=== PATIENT | male | born 1965 | race Caucasian/White ===

== ENCOUNTER 2021-03-12 05:47 | Inpatient (IN) | payer BC ==
[~2021-03-12] VITALS: Ht 177.8 cm; Wt 149.7 kg
[2021-03-12 06:33] LABS: HEMOGLOBIN 14.8 gm/dl (14.0-17.5); RED BLOOD COUNT 4.95 M/UL (4.20-5.50); WHITE BLOOD COUNT 6.4 K/UL (4.5-11.0)
[2021-03-12 06:46] LABS: BUN/CREATININE RATIO 24 (0-10)
[2021-03-12 09:37] LABS: BORDETELLA PARAPERTUSSIS Not Detected (Not Detectd); BORDETELLA PERTUSSIS Not Detected (Not Detectd); CHLAMYDIA PNEUMONIAE Not Detected (Not Detectd); CORONAVIRUS HKU1 Not Detected (Not Detectd); CORONAVIRUS NL63 Not Detected (Not Detectd); CORONAVIRUS OC43 Not Detected (Not Detectd); CORONOAVIRUS 229E Not Detected (Not Detectd); HUMAN METAPNEUMOVIRUS Not Detected (Not Detectd); HUMAN RHINOVIRUS/ENTEROVIRUS Not Detected (Not Detectd); INFLUENZA A Not Detected (Not Detectd); INFLUENZA B Not Detected (Not Detectd); MYCOPLASMA PNEUMONIAE Not Detected (Not Detectd); PARAINFLUENZA VIRUS 1 Not Detected (Not Detectd); PARAINFLUENZA VIRUS 2 Not Detected (Not Detectd); PARAINFLUENZA VIRUS 3 Not Detected (Not Detectd); PARAINFLUENZA VIRUS 4 Not Detected (Not Detectd); RESPIRATORY SYNCYTIAL VIRUS Not Detected (Not Detectd)
[2021-03-12] MEDS ORDERED: PREDNISONE10 M1 PO (10:16)
[2021-03-12] MEDS ORDERED: ALBUTEROL2.5 MG/3 M INH (10:16)
[2021-03-12] MEDS ORDERED: ASPIRIN81 MG PO (10:17)
[2021-03-12] MEDS ORDERED: BENICAR 20 MG T20 MG PO (10:17)
[2021-03-12] MEDS ORDERED: TOPIRAMATE100 MG PO (10:17)
[2021-03-12] MEDS ORDERED: CEFDINIR300 MG PO (10:18)
[2021-03-12 10:38] LABS: SARS-CoV-2 DETECTED (Not Detectd)
[2021-03-13 02:59] LABS: HEMOGLOBIN 13.3 gm/dl (14.0-17.5); RED BLOOD COUNT 4.53 M/UL (4.20-5.50); WHITE BLOOD COUNT 5.2 K/UL (4.5-11.0)
[2021-03-13 03:19] LABS: BUN/CREATININE RATIO 25 (0-10)
--- NOTE | 2021-03-13 14:42 | NUR ---
REPORT CALLED TO NEHA MIRELES ON MED SURG, PT GOING TO ROOM [id number]
[2021-03-14 07:14] LABS: HEMOGLOBIN 14.2 gm/dl (14.0-17.5); RED BLOOD COUNT 4.94 M/UL (4.20-5.50); WHITE BLOOD COUNT 6.1 K/UL (4.5-11.0)
[2021-03-14 07:31] LABS: BUN/CREATININE RATIO 26 (0-10)
[2021-03-15 04:51] LABS: RED BLOOD COUNT 4.67 M/UL (4.20-5.50); WHITE BLOOD COUNT 7.6 K/UL (4.5-11.0)
[2021-03-15 05:11] LABS: BUN/CREATININE RATIO 27 (0-10)
[2021-03-16 05:00] LABS: HEMOGLOBIN 14.2 gm/dl (14.0-17.5); RED BLOOD COUNT 4.75 M/UL (4.20-5.50)
[2021-03-16 05:03] LABS: WHITE BLOOD COUNT 9.6 K/UL (4.5-11.0)
[2021-03-16 05:22] LABS: BUN/CREATININE RATIO 24 (0-10)
[2021-03-16] MEDS ORDERED: DECADRON6 MG PO (15:32)
== END 2021-03-16 16:30 | disposition home or self-care (01) | DRG 177 ==
LOC: ER1 05:47 → M/S 08:00 → CDU 08:00 → PROG CARE 12:47 → M/S 03-13 16:34
PROVIDERS: Physician Assistant Medical; Preventive Medicine Occupational Medicine; ADMIT Internal Medicine
PROC: 8E0ZXY6 Isolation (ICD-10-PCS; principal; 2021-03-12)
PROC: 3E0333Z Introduction of Anti-inflammatory into Peripheral Vein, Percutaneous Approach (ICD-10-PCS; 2021-03-12)
PROC: XW033E5 Introduction of Remdesivir Anti-infective into Peripheral Vein, Percutaneous Approach, New Technology Group 5 (ICD-10-PCS; 2021-03-12)
DX: U07.1 COVID-19 (principal); J12.82 Pneumonia due to coronavirus disease 2019; J96.01 Acute respiratory failure with hypoxia; Z68.42 Body mass index [BMI] 45.0-49.9, adult; I10 Essential (primary) hypertension; E66.01 Morbid (severe) obesity due to excess calories; Z79.899 Other long term (current) drug therapy; Z79.82 Long term (current) use of aspirin; Z87.891 Personal history of nicotine dependence
CPT/HCPCS: 36415; 36600; 71045; 80048; 80053; 81001; 82803; 83605; 83690; 83735; 83880; 85025; 85027; 85652; 86140; 87086; 87633; 94640; 94760; 96374; 96375; 99285; J0248; J0360; J0696; J1100; J1650; J7030; J7050